=== PATIENT | male | born 1985 | race African-American/Black ===

== ENCOUNTER 2021-01-03 12:36 | Emergency (ER) | payer MEDICARE, MEDICAID ==
[~2021-01-03] VITALS: Ht 172.7 cm; Wt 82.0 kg
[2021-01-03 12:42] VITALS: BP 113/82
== END 2021-01-03 13:41 | disposition left against medical advice (07) ==
LOC: ER 13:01
DX: Z53.21 Procedure and treatment not carried out due to patient leaving prior to being seen by health care provider (principal); I49.9 Cardiac arrhythmia, unspecified
CPT/HCPCS: 93005